=== PATIENT | female | born 1970 ===

== ENCOUNTER 2024-08-12 15:09 | Outpatient (CLI) | payer OTHER ==
[~2024-08-12 15:09] MED LIST: ANAPROX275 MG PO; CARAFATE SU1 G/10 ML PO; CIPRO500 MG PO; DOLOGESIC CAPSU1 CAP PO; NEXIUM20 MG/PACK PO; POLY119PG PO; PROTONIX40 MG PO; TYLOPHEN500 MG PO; ULTRACET PO
== END 2024-08-12 15:12 | disposition home or self-care (01) ==
LOC: RAD 15:09
PROVIDERS: ATTEND Family Medicine
DX: G89.11 Acute pain due to trauma (principal)